=== PATIENT | female | born 1985 | race Caucasian/White ===

== ENCOUNTER → 2016-11-18 | Outpatient (CLI) | payer BC ==
[~2016-11-18] MED LIST: BIOT300T2 PO; CETI10TA10 PO; ESCI10TA17 PO; OMEGCAP2 PO; PRENTAB26 PO
[2016-11-18 12:00] LABS: URINE APPEARANCE CLEAR (CLEAR); URINE BILIRUBIN NEG (NEG); URINE COLOR YELLOW; URINE NITRITE NEG (NEG); URINE SPECIFIC GRAVITY 1.019 (1.000-1.030); UROBILINOGEN NEG (NEG)
[2016-11-18 12:08] LABS: MANUAL MICROSCOPIC REQUIRED? NO; REVIEW REQ? NO
[2016-11-18 12:19] LABS: BASO % 0.3 %; BASO ABS # 0.02 K/uL (0-0.2); COMPLETE YES; HEMATOCRIT 36.9 % (37-47); IG% 0.2 %; LYMPH % 20.1 %; MEAN CELL VOLUME 84.6 fL (80-100); MEAN CORPUSCULAR HEMOGLOBIN 29.8 pg (25-34); MEAN CORPUSCULAR HGB CONC 35.2 g/dl (32-36); MEAN PLATELET VOLUME 11.9 fL (7.4-10.4); MONO % 9.2 %; NEUT % 65.2 %; PLATELET COUNT 174 K/uL (130-400); RED BLOOD COUNT 4.36 M/uL (4.2-5.4); WHITE BLOOD COUNT 5.97 K/uL (4.8-10.8)
[2016-11-20 00:34] LABS: CHLAMYDIA TRACH RNA*** NOT DETECTED (NOT DETECTED); GC (NEIS GONORRHOEAE)RNA** NOT DETECTED (NOT DETECTED)
== END | disposition home or self-care (01) ==
LOC: C.LAB1850 09:52
PROVIDERS: ATTEND Obstetrics & Gynecology
DX: Z34.91 Encounter for supervision of normal pregnancy, unspecified, first trimester (principal)

== ENCOUNTER → 2017-01-16 | Outpatient (CLI) | payer BC ==
[2017-01-16 10:05] LABS: GTGD 50 Grams
== END | disposition home or self-care (01) ==
LOC: C.LAB1850 09:03
PROVIDERS: ATTEND Obstetrics & Gynecology
DX: Z34.92 Encounter for supervision of normal pregnancy, unspecified, second trimester (principal); Z3A.00 Weeks of gestation of pregnancy not specified

== ENCOUNTER → 2017-04-03 | Outpatient (CLI) | payer OTHER ==
[2017-04-03 12:16] LABS: HEMOGLOBIN 10.4 g/dL (12.0-16.0)
== END | disposition home or self-care (01) ==
LOC: C.LAB1850 09:36
PROVIDERS: ATTEND Obstetrics & Gynecology
DX: Z34.93 Encounter for supervision of normal pregnancy, unspecified, third trimester (principal); Z3A.00 Weeks of gestation of pregnancy not specified

== ENCOUNTER 2017-06-21 03:57 | Inpatient (IN) | payer OTHER ==
[~2017-06-21] VITALS: Ht 160 cm; Wt 94.1 kg
[2017-06-21] MEDS ORDERED: METHYLERGONOVINE MALEATE 0.2 MG/ML AMP ONE (04:16)
[2017-06-21] MEDS ORDERED: HYDROCORTISONE ACETATE 25 MG SUPP PR PRN (04:30)
[2017-06-21] MEDS ORDERED: LANOLIN OINT EXT PRN (04:30)
[2017-06-21] MEDS ORDERED: DIPHTHERIA/TETANUS/PERTUSSIS 0.5 ML SYR/VIAL IM. ONE (04:30)
[2017-06-21] MEDS ORDERED: METHYLERGONOVINE MALEATE 0.2 MG/ML AMP IM ONE (04:30)
[2017-06-21] MEDS ORDERED: SUPERCREAM 0.870 % 15GM JAR EXT PRN (04:30)
[2017-06-21] MEDS ORDERED: OXYTOCIN INJ 10 UNITS/ML VIAL IM ONE (04:30)
[2017-06-21] MEDS ORDERED: BENZOCAINE 20% AER SPR 82.5 GM CAN EXT PRN (04:30)
[2017-06-21] MEDS: IBUPROFEN 600 MG TAB PO PRN ×4 (04:44→23:36)
--- NOTE | 2017-06-21 04:57 | DELIVERY SUMMARY ---
DATE OF OPERATION: 06/21/2017 DATE OF DELIVERY: 06/21/2017. FINDINGS: Viable female with Apgars of 7 and 9. Nuchal cord x1. Delivered over midline second-degree laceration. Placenta delivered spontaneously. Laceration repaired with 4-0 Vicryl in routine fashion. Estimated blood loss 300 mL. LABOR NOTE: Patient is a 32-year-old 2, para 1 with an EDC of 06/26/2017 at 39+ weeks gestational age. She presented to labor and delivery in active labor. Patient states her contractions began at approximately 2200 hours on 06/20/2017. She denied rupture of membranes or vaginal bleeding. Patient has had a benign course. Her blood type is A positive, antibody negative, Rubella immune, hepatitis B negative. She declined a quad screen. She had normal 1-hour Glucola x2 and a negative third trimester beta strep culture. Upon admission, the patient was found to be fully dilated with bulging membranes at +2 station. Patient had an uncontrollable urge to push. Artificial rupture of membranes of light meconium fluid. Baby delivered over 2 contractions. Nuchal cord x1 reduced on the perineum. Cord was clamped and cut and the baby was taken over to the resuscitation stand for evaluation. Cord gases and cord blood samples obtained. Placenta delivered spontaneously. Patient received Pitocin 10 units IM and Methergine 0.2 mg IM. Inspection of the perineum showed a midline second-degree laceration. Infiltrated with 1% lidocaine and closed with 4-0 Vicryl suture. Estimated blood loss 300 mL. Sponge and needle count was correct. I attest to the content of the Intraoperative Record and any orders documented therein. Any exception s are noted below.
[2017-06-21] MEDS ORDERED: PRENTAB26 PO (05:15)
[2017-06-21] MEDS ORDERED: ESCI1TAB10 PO (05:15)
[2017-06-21 05:17] VITALS: Ht 160 cm; Wt 94.1 kg
[2017-06-21] MEDS ORDERED: ESCITALOPRAM OXALATE 10 MG TAB PO SCH (08:00)
[2017-06-21] MEDS: DOCUSATE SODIUM 100 MG CAP PO SCH ×2 (08:45→19:43)
[2017-06-21] MEDS: PRENATAL VITAMIN TAB PO SCH (08:45)
[2017-06-21] MEDS: FERROUS SULFATE 325 MG TAB PO SCH (08:45)
[2017-06-21 14:05] VITALS: BP 105/82; PULSE 92; TEMP 36.9; O2SAT 98
[2017-06-21 15:30] VITALS: BP 117/74; PULSE 73; TEMP 36.8
[2017-06-21 20:00] VITALS: BP 96/62; PULSE 81; TEMP 37
[2017-06-21] MEDS ORDERED: ESCITALOPRAM OXALATE 20 MG TAB PO SCH (20:00)
[2017-06-21 23:25] VITALS: BP 105/66; PULSE 73; TEMP 36.9; O2SAT 99
[2017-06-22 03:30] VITALS: BP 109/57; PULSE 76; TEMP 36.8; O2SAT 98
--- NOTE | 2017-06-22 06:35 | Progress Note ---
Subjective June 22, 2017. Subjective conversation w/ patient Ambulation: ambulating normally Voiding: no voiding problems Diet Tolerance: Regular Diet Lochia: Moderate Feeding Type: Bottle Feeding Pain: Mild perineal pain reported, improved with analgesia Review of Systems Constitutional: No fever, No chills Respiratory: No shortness of breath Cardiac: No chest pain Abdomen: No nausea, No vomiting Objective Vital Signs Date Time Temp Pulse Resp B/P (MAP) Pulse Ox O2 Delivery O2 Flow Rate FiO2 06/22/17 03:30 36.8 76 18 109/57 (74) 98 Room Air 06/21/17 23:25 36.9 73 18 105/66 (79) 99 Room Air 06/21/17 23:25 99 Room Air 06/21/17 20:00 37.0 81 18 96/62 (73) Room Air 06/21/17 15:30 36.8 73 18 117/74 (88) Room Air 06/21/17 15:30 Room Air 06/21/17 14:05 Room Air 06/21/17 14:05 36.9 92 16 105/82 (90) 98 Room Air Physical Exam General Appearance: WELL-APPEARING, WD/WN, NO APPARENT DISTRESS Respiratory/Chest: lungs clear, normal breath sounds Cardiovascular: regular rate, rhythm Abdomen: soft Fundus: Firm, Non-Tender, Relation to Umbilicus (at u) Extremities: no pedal edema, no calf tenderness Laboratory Results Last 24 Hours Test 06/22/17 06:21 Medications Current Inpatient Medications Medications (Trade) Dose Ordered Sig/Emily Route Start Time Stop Time Status Last Admin Dose Admin Benzocaine (Dermoplast Aero Spr) 1 appln PRN PRN EXT 06/21/17 04:30 07/21/17 04:29 Cocaine HCl (Supercream 0.870% Cr) BID PRN EXT 06/21/17 04:30 07/05/17 04:29 Hydrocortisone Acetate (Anusol Hc Supp) 25 mg BID PRN WA 06/21/17 04:30 07/21/17 04:29 Lanolin (Lanolin Oint) PRN PRN EXT 06/21/17 04:30 07/21/17 04:29 Prenat Multivit/ Data Compiler/Iron/Folic Ac ( Vitamin Tab) 1 tab DAILY PO 06/21/17 08:00 07/21/17 07:59 06/21/17 08:45 1 TAB Ibuprofen (Motrin Tab) 600 mg Q4H PRN PO 06/21/17 04:30 07/21/17 04:29 06/21/17 23:36 600 MG Bisacodyl (Dulcolax Tab) 5 mg 20 PO 06/22/17 20:00 06/22/17 20:01 Docusate Sodium (coLACE CAP) 100 mg BID PO 06/21/17 08:00 07/21/17 07:59 06/21/17 19:43 100 MG Ferrous Sulfate (Feosol Tab) 325 mg DAILY PO 06/21/17 08:00 07/21/17 07:59 06/21/17 08:45 325 MG Escitalopram Oxalate (Lexapro Tab) 20 mg DAILY@1999 PO 06/21/17 20:00 07/21/17 19:59 06/21/17 19:43 20 MG Assessment and Plan Post- Day#: 1 Continue Routine Care: 32F s/p NVD with second degree laceration day 1 - A+, Rubella Immune, GBS -ve - pt doing very well clinically - Vital signs reviewed and WNL - Continue to encourage ambulation and control pain with Motrin PRN - Pt ready for d/c later today and will be counselled on discharge instructions Resident Physician Supervision Note: I interviewed and examined the patient. Discussed with Dr. Abraham and agree with findings and plan as documented in the note. Any exceptions or clarifications are listed here: Patient ready for d/c. Instructions given, f/u in 6 weeks Documented By: Pop Núñez Resident Tracking Resident Involvement: Resident Care Provided Care Provided: OB Delivery
[2017-06-22 06:37] LABS: HEMOGLOBIN 10.9 g/dL (12.0-16.0)
--- NOTE | 2017-06-22 06:55 | Discharge Instructions ---
Discharge Instructions Date of Service June 22, 2017. Admission Reason for Admission: LABOR Discharge Discharge Diagnosis / Problem: Vaginal Delivery Discharge Goals Goal(s): Routine recovery after delivery Medications Continue Dispensed Medications: supercream, dermaplast, tucks, lansinoh Activity Recommendations Activity Limitations: per Instructions/Follow-up section . Instructions / Follow-Up Instructions / Follow-Up ACTIVITY RECOMMENDATIONS: * Gradual return to full activity over the next 2-3 weeks. * No lifting - nothing heavier than baby over the next 2-3 weeks. * Do not engage in vigorous exercise, sexual activity or sports until cleared by your physician. * Do not drive or operate any motorized equipment until cleared by your physician. * You may shower/bathe daily. MEDICATIONS: For discomfort or pain, you may use Acetaminophen (Tylenol), Ibuprofen (Advil), or Naproxen (Aleve) following the package directions. For constipation you may use Colace following the package directions. BREAST CARE: If you are not breast feeding: * Wear a supportive bra 24 hours a day for one to two weeks. * Avoid stimulating your breasts and nipples as much as possible during the first few weeks after delivery. * When taking a shower, have the warm water hit your back, not breasts. * When your breasts feel full, apply ice packs. Usually three to four times a day helps ease the discomfort. * Take a mild pain medication (Tylenol / Motrin) when you are uncomfortable. If breast feeding: * Use breast milk to lubricate nipples. Lansinoh cream may be used for sore nipples. You do not need to remove cream prior to breast feeding. If using a different brand of cream, check the label for directions regarding removal of cream prior to nursing. * Wear a supportive bra. * If having problems with breasts or breast feeding, call a reservoir engineering consultant or your health care provider. EPISIOTOMY CARE: After delivery, if you have an episiotomy (stitches), the following steps will ease discomfort and aid healing. * For the first 24 hours after delivery, place ice packs next to your episiotomy to help reduce swelling. * After the first 24 hour-period, sitz baths, either portable or in the tub, are suggested. A shower with a shower arm sprayed over the episiotomy may be comforting. * Gisel care should be done after each voiding and bowel movement. Squirt warm water from a plastic bottle over the perineum (region of the body between the anus and urinary opening) and pat dry. * Use Dermoplast to ease discomfort. Shake container. Hurst directly over the episiotomy. Place a Tucks on a clean sanitary pad next to your episiotomy. SPECIAL CARE INSTRUCTIONS: When you are discharged from the hospital, it is important for you to follow the instructions listed below: * During the first week at home, you should be able to care for yourself and your baby. In addition, the usual light household activities are encouraged. * Limit your activities to the way you feel. Do not try to clean the house or move furniture. Be sensible. * If you actively engage in sports and have done so up until the time of your delivery, you may resume these activities as soon as you feel able. This may take up to one month or even longer. Use good judgment. * Continue to take your vitamins for at least six weeks after the of your baby. * Your diet need not be limited unless you were on a special diet before your delivery. Breast-feeding mothers need around 2500 calories per day and at least 64-80 ounces of fluid per day (8 to 10 glasses). * You should eat foods from the four major food groups. Crash diets or fad diets are to be avoided. Eating lean meats, fresh fruits and vegetables, low-fat dairy products, high fiber foods and a regular exercise program, will help you get back to your pre- weight without putting your health at risk. * Constipation is sometimes a problem after delivery. Take a mild laxative as needed. If breast feeding, Milk of Magnesia is acceptable to use. You may use a suppository or Fleets enema if no episiotomy. * A daily shower or tub bath is suggested. Be sure to thoroughly and gently dry the perineum. * A bloody vaginal discharge will usually continue until around four weeks post . A small amount of bleeding may continue for as long as six weeks. Vaginal discharge changes from the bright red bleeding after delivery to pink then brownish and finally yellowish-pink before becoming white and disappearing. * Bleeding may increase with activity. Your first period may come in 4-8 weeks. If you are breast feeding, your period may be delayed even longer. * [place] (sex) can begin whenever both you and your partner feel comfortable and do not have any form of genital infection. It is recommended that you wait at least six weeks for internal and external healing to occur. If you have questions, please talk to your health care practitioner. A condom should be used to prevent infection and . * Foreplay, gentle intercourse and lubrication is very important the first several times to prevent pain. A water-based lubricant such as K-Y jelly or Astroglide may be used. * If you have RH negative blood and your baby is RH positive, you will receive RHOGAM by injection prior to discharge. The nurse will give you a card to keep with you that has the date and place that you received RHOGAM after delivery. * During your care, you had a Rubella screen done to check for the presence of rubella antibodies in your blood. If your test was negative, you will receive a Rubella vaccine prior to discharge. This vaccine may cause a fever, soreness at the injection site and flu-like symptoms. If these symptoms persist, notify your health care practitioner. is not advised for one month after a Rubella vaccine. * Verbalizes understanding of car seat law as reviewed with patient nursing. * Car Seat hand-out given and reviewed with patient by nursing. * Shaken baby information reviewed with patient by nursing. Call you doctor if: * Heavy bleeding (saturating several pads an hour) or passing clots the size of your fist. * A fever >101 degrees F (38.3 degrees C) on two occasions four hours apart and /or chills. * Unusual pain in the pelvic or vaginal areas. * "Baby Blues" lasting longer than two weeks. If you have any questions or concerns, call your health care practitioner at . FOLLOW UP VISIT: * Please call the office at to schedule a 6 week examination. It is important you keep this appointment. It is important for you to make arrangements for either yearly or twice yearly check-ups thereafter. Current Hospital Diet Patient's current hospital diet: Regular OB Diet Discharge Diet Recommended Diet: Regular Diet Pending Studies Studies pending at discharge: no Medical Emergencies . Who to Call and When: Medical Emergencies: If at any time you feel your situation is an emergency, please call [phone] immediately. . Non-Emergent Contact Non-Emergency issues call your: Primary Care Provider . . "Provider Documentation" section prepared by Loco Abraham. .
[2017-06-22] MEDS: DOCUSATE SODIUM 100 MG CAP PO SCH (07:21)
[2017-06-22] MEDS: PRENATAL VITAMIN TAB PO SCH (07:21)
[2017-06-22] MEDS: FERROUS SULFATE 325 MG TAB PO SCH (07:21)
[2017-06-22] MEDS: IBUPROFEN 600 MG TAB PO PRN ×3 (07:22→16:44)
[2017-06-22 07:30] VITALS: BP 132/77; PULSE 76; TEMP 36.4; O2SAT 99
[2017-06-22 15:40] VITALS: BP 110/67; PULSE 89; TEMP 36.8
[2017-06-22 17:00] VITALS: BP_DIAS 67; PULSE 89; TEMP 36.8
[2017-06-22] MEDS ORDERED: BISACODYL 5 MG TABEC PO SCH (20:00)
== END 2017-06-22 17:15 | disposition home or self-care (01) | DRG 775 ==
LOC: C.LD 03:57 → C.OPB 03:57 → C.LD 04:16 → C.OBG 14:24 → EDSTATUS 06-26 03:55
PROVIDERS: ADMIT Obstetrics & Gynecology; ATTEND Obstetrics & Gynecology
PROC: 0KQM0ZZ Repair Perineum Muscle, Open Approach (ICD-10-PCS; principal; 2017-06-21)
PROC: 10E0XZZ Delivery of Products of Conception, External Approach (ICD-10-PCS; principal; 2017-06-21)
DX: O70.1 Second degree perineal laceration during delivery (principal); O69.81X1 Labor and delivery complicated by cord around neck, without compression, fetus 1; Z37.0 Single live birth

== ENCOUNTER 2022-01-23 00:39 | Inpatient (IN) ==
[2022-01-23] MEDS ORDERED: OXYTOCIN 30 UNITS/500 ML BAG IV PRN ×3 (02:23→07:13)
[2022-01-23] MEDS ORDERED: LIDOCAINE 1% LOCAL 20 ML VIAL INFIL PRN (02:23)
--- NOTE | 2022-01-23 02:29 | History & Physical Report ---
Date of Service January 23, 2022 Assessment & Plan (1) Elderly multigravida: Plan: Admit to L&D. EFM/toco, labs. OK to ambulate. OK for epidural when she desires. Admission and Anticipated Discharge Date Admission Date: January 23, 2022 History of Present Illness Chief Complaint: contractions Primary Care Provider: NO PCP 36yo @ 40 3/7, presented to L&D with ctx. + movement, no vaginal bleeding or leaking of fluid. Has had increasing ctx overnight tonight, started after membrane stripping in office yesterday in preparation of IOL. Allergies Allergy/AdvReac Type Severity Reaction Status Date / Time acetaminophen Allergy Unknown Cough, Verified 01/22/22 14:35 difficulty breathing and throat irritation. animal dander Allergy Unknown Verified 01/22/22 14:35 pollen extracts Allergy Verified 01/22/22 14:35 dust Allergy Unknown Uncoded 01/20/22 13:11 Home Medications Medication Instructions Recorded Confirmed Type escitalopram oxalate 20 mg tablet 20 mg PO DAILY #0 tabs 06/21/17 01/23/22 History (Lexapro) cetirizine 10 mg tablet 10 mg PO DAILY allergy symptoms 07/08/19 01/23/22 History bupropion HCl [Wellbutrin] 150 mg PO DAILY 12/25/20 01/23/22 History prenat.vits,griffin,lme-pvxh-fwadv 1 tab PO DAILY 06/03/21 01/23/22 History albuterol sulfate 90 mcg/actuation 2 inh inhalation Q6H PRN shortness 07/12/21 01/23/22 Rx breath activated powder inhaler of breath or wheezing #1 ea Patient History Medical History (Updated 06/03/21 @ 10:05 by Elayne Naidu) History of chicken pox SERJIO (iron deficiency anemia) IUD (intrauterine device) in place Shanon 2017 Right radial head fracture Tinea corporis Surgical History H/O wisdom tooth extraction Family History Grandmother FHx: diabetes mellitus Breast cancer Mother Hypertension Hypercholesterolemia Osteoporosis Kidney disease Allergic rhinitis Father Allergic rhinitis Lung cancer Brother Allergic rhinitis Denies family history of Ovarian cancer Colorectal cancer Social History (Updated 06/03/21 @ 09:55 by Elayne Rushing Smoking Status: Never smoker Hx Alcohol Use: Yes (social) Hx Substance Use: No Preferred Language: Arabic Communication Ability: Effective [employer] Required: No Beliefs That Will Affect Care: Yarsani Yarsani Beliefs: Jehovah'S Witness marital status: marital status details: Thee Sandy (39) [phone] Current Living Situation: Spouse and Family Current Living Situation Comment: Spouse and 2 children. current occupational status: unemployed current occupation: homemaker Feels Safe at Home: Yes Safety Concerns: Feels Safe At This Time Assistive Devices: Glasses Review of Systems All systems reviewed & are unremarkable except as noted in HPI & below Physical Exam Physical Exam: FHT Cat 1 [place] Q 4-6 min SVE 3-4/80/-1 per RN Constitutional: WD/WN, vitals as above Respiratory: normal respiratory effort, lungs clear to auscultation no respiratory distress Cardiovascular: Rate/Rhythm: regular rate and regular rhythm Gastrointestinal (Abdomen): Inspection/Auscultation: abdomen normal to inspection Percussion/Palpation: abdomen soft; abdomen nontender Gravid. No s/s chorio or abruption. Skin: no rashes, warm and dry Psychiatric: A+Ox3, euthymic affect Results & Data ([facility]) Vital Signs (Past 12 Hours) Vital Signs Temp Pulse Resp BP 01/23/22 00:58 81 123/66 01/23/22 01:03 37.1 C 20 Coding Level of Care Code None Diagnoses Elderly multigravida O09.529
[2022-01-23] MEDS: LACTATED RINGER'S 1,000 ML IV PRN ×2 (02:53→03:51)
[2022-01-23 02:55] LABS: Hematocrit (blood only) 31.7 % (34.1-44.9); Hemoglobin 10.3 g/dl (12.0-16.0); Mean Corpuscular Hemoglobin 26.3 pg (25.0-34.0); Mean Corpuscular Hgb Conc 32.5 g/dL (32.0-36.0); Mean Corpuscular Volume 80.9 fL (80.0-100.0); Mean Platelet Volume 10.7 fL (9.4-12.3); Platelet Count 154 K/uL (130-400); RDW Coefficient of Variation 14.6 % (11.5-14.5); RDW Standard Deviation 42.7 fL (36.4-46.3); Red Blood Count 3.92 M/uL (3.93-5.22); White Blood Count 9.22 K/ul (4.8-10.8)
[2022-01-23] MEDS ORDERED: ePHEDrine sulfate 50 MG/ML AMP ONE (03:07)
[2022-01-23] MEDS ORDERED: fentaNYL citrate 100 MCG/2 ML VIAL ONE (03:07)
[2022-01-23] MEDS ORDERED: SODIUM CHLORIDE 0.9% INJ 10 ML VIAL ONE (03:07)
[2022-01-23] MEDS ORDERED: fentaNYL 2MCG/ML ROPIVACAINE 1.25MG/ML 100 ML BAG EPI ONE (03:08)
[2022-01-23] MEDS ORDERED: LIDOCAINE 2%/EPINEPHRINE 1:200,000 20 ML SDV ONE (03:08)
[2022-01-23] MEDS ORDERED: BUPIVACAINE 0.25% 30 ML VIAL ONE (03:08)
[2022-01-23] MEDS ORDERED: NALOXONE HCL 0.4 MG/1 ML VIAL/CARP IV PRN (03:30)
[2022-01-23] MEDS ORDERED: NALBUPHINE HCL INJ 10 MG/ML AMP IV PRN (03:30)
[2022-01-23] MEDS ORDERED: ePHEDrine sulfate 50 MG/ML AMP IV PRN (03:30)
[2022-01-23] MEDS ORDERED: fentaNYL 2MCG/ML ROPIVACAINE 1.25MG/ML 100 ML BAG EPI PRN (03:30)
[2022-01-23] MEDS ORDERED: diphenhydrAMINE 50 MG/ML VIAL IV PRN (03:30)
[2022-01-23] MEDS ORDERED: ONDANSETRON INJ 2 MG/ML 2 ML VIAL IV PRN (03:30)
[2022-01-23] MEDS ORDERED: NALOXONE HCL 1 MG in SODIUM CHLORIDE 0.9% 1000ML 1,000 ML IV PRN (03:30)
--- NOTE | 2022-01-23 03:33 | Anesthesiology Consultation ---
Date of Service January 23, 2022 Assessment & Plan Chart Review Chart Review: Patient NOT seen in Pre Admission Testing and Acceptable Risk for Labor Epidural Consults Requested none ASA ASA2 Proposed Anesthesia Anesthesia Type: Labor Epidural and CSE Risk / Benefits Reviewed With: PT / POA / Parent / Guardian, Accepts Plan and Informed Consent Obtained History Height/Weight Height: 5 ft 3 in Weight: 96.162 kg Allergies Allergy/AdvReac Type Severity Reaction Status Date / Time acetaminophen Allergy Unknown Cough, Verified 01/22/22 14:35 difficulty breathing and throat irritation. animal dander Allergy Unknown Verified 01/22/22 14:35 pollen extracts Allergy Verified 01/22/22 14:35 dust Allergy Unknown Uncoded 01/20/22 13:11 Medications Home Medications Medication Instructions Recorded Confirmed Last Taken escitalopram oxalate 20 mg tablet 20 mg PO DAILY #0 tabs 06/21/17 01/23/22 01/22/22 20:00 (Lexapro) cetirizine 10 mg tablet 10 mg PO DAILY allergy symptoms 07/08/19 01/23/22 20:00 bupropion HCl [Wellbutrin] 150 mg PO DAILY 12/25/20 01/23/22 01/22/22 20:00 prenat.vits,griffin,aam-mfdd-eccoy 1 tab PO DAILY 06/03/21 01/23/22 01/22/22 20:00 albuterol sulfate 90 mcg/actuation 2 inh inhalation Q6H PRN shortness 07/12/21 01/23/22 Unknown breath activated powder inhaler of breath or wheezing #1 ea Active Medications Generic Name Dose Route Start Last Admin Trade Name Freq PRN Reason Stop Dose Admin Lactated Ringer's 1,000 mls @ 125 mls/hr 01/23/22 02:23 01/23/22 02:53 Lr IV 01/25/22 02:22 999 mls/hr .Q8H PRN Administration L&D Protocol Protocol NPO Date Last Intake of Fluids: 01/23/22 Time Last Intake of Fluids: 01:00 Date Last Intake of Solids: 01/22/22 Time Last Intake of Solids: 19:00 Past Medical History Medical History History of chicken pox SERJIO (iron deficiency anemia) IUD (intrauterine device) in place Shanon 2018 Right radial head fracture Tinea corporis Exercise / Class Metabolic Activity II 4-5 Yardwork/Stairs/Walk up hill Past Family History Family History Grandmother FHx: diabetes mellitus Breast cancer Mother Hypertension Hypercholesterolemia Osteoporosis Kidney disease Allergic rhinitis Father Allergic rhinitis Lung cancer Brother Allergic rhinitis Denies family history of Ovarian cancer Colorectal cancer Past Surgical History Surgical History H/O wisdom tooth extraction Past Anesthesia History No Hx of Anesthesia Complications and No Family Hx of Anesthesia Complications History of PONV No Hx of PONV and No Hx of Motion Sickness Social History Smoking Status: Never smoker Hx Alcohol Use: Yes (social) Hx Substance Use: No Review of Systems no chest pain or sob Physical Exam Vital Signs Last Vital Signs Temp 37.1 C 01/23/22 01:03 Pulse 76 01/23/22 03:30 Resp 20 01/23/22 01:03 BP 123/66 01/23/22 00:58 Pulse Ox 97 01/23/22 03:30 ENMT Mouth: no TMJ abnormality Thyromental Distance: > or= 3.5 Finger Breadths Mallampati Class: II Neck normal visual inspection Respiratory normal respiratory effort Auscultation: lungs clear to auscultation bilaterally Cardiovascular Rate/Rhythm: regular rate and regular rhythm Musculoskeletal Spine: normal cervical ROM Neurologic moves all extremities Psychiatric Orientation: alert and oriented x 3 Testing Laboratory Results 01/23/22 02:32
--- NOTE | 2022-01-23 07:03 | Delivery Summary ---
Vaginal Delivery Summary Date of Service January 23, 2022 Vaginal Delivery Summary Vaginal Delivery Summary: Pre-delivery diagnoses: 36yo @ 40 3/7, spontaneous labor, AMA Post-delivery diagnoses: same Procedure: spontaneous vaginal delivery, repair of 1st degree tear Surgeon: Taylor Bhatia DO Complications: none Findings: Viable female . Apgars: 7/8. Weight pending, please see nursery records. Estimated blood loss:300ml Description of delivery: The patient progressed to complete with epidural anesthesia. She then began to push. She spontaneously vaginally delivered a viable from the cephalic presentation. The head delivered in GREGORIO position. The anterior shoulder delivered, followed by the posterior shoulder, followed by the body. The baby was placed on mother's abdomen and a spontaneous cry was heard. Delayed cord clamping was employed, and the cord was doubly clamped and cut. A segment was retained for cord gases. Cord blood was obtained. The placenta was delivered spontaneously intact with a 3-vessel cord. The uterus and vagina were swept of clots and debris. IV pitocin was given. The uterus became firm. The cervix, vagina, and perineum were inspected and a 1st degree perineal laceration was noted, repaired with 3-0 vicryl in standard fashion. Excellent hemostasis was observed. The mother and baby are recovering in stable and good condition in the room. Sponge, needle and instrument counts were correct x 2. Taylor Bhatia DO [facility]
[2022-01-23] MEDS ORDERED: ACETAMINOPHEN 325 MG TAB PO PRN (07:13)
[2022-01-23] MEDS ORDERED: DIPHTHERIA/TETANUS/PERTUSSIS 0.5 ML SYR/VIAL IM ONE (07:13)
[2022-01-23] MEDS ORDERED: BENZOCAINE 20% AER SPR 82.5 GM CAN EXT PRN (07:13)
[2022-01-23] MEDS ORDERED: oxyCODONE/ACETAMINOPHEN 5mg/325mg TAB PO PRN (07:13)
[2022-01-23] MEDS ORDERED: HYDROCORTISONE ACETATE 25 MG SUPP PR PRN (07:13)
[2022-01-23] MEDS ORDERED: bisacodyL 10 MG SUPP PR PRN (07:13)
[2022-01-23] MEDS ORDERED: ALBUTEROL HFA 8 GM INHALER INH PRN (07:17)
[2022-01-23 07:41] LABS: Base Excess Cord Arterial Bld -3.1 mEq/L (-9-1.8); CO2 Cord Arterial Blood 63 mmHg (39.1-73.5); HCO3 Cord Arterial Blood 26 mmol/L (19.7-28.5); Oxygen Sat Cord Arterial Blood < 60.0 % (<60); PO2 Cord Arterial Blood 20 mmHg (4.1-31.7); pH Cord Arterial Blood 7.22 (7.1-7.38)
[2022-01-23 07:44] LABS: Base Excess Cord Venous Blood -3.1 mEq/L (-7.7-1.9); Cord Venous Blood HCO3 23 mmol/L (18.4-26.8); Cord Venous Blood PCO2 45 mmHg (30.4-57.2); Cord Venous Blood PO2 27 mmHg (14.1-43.3); Cord Venous Blood pH 7.32 (7.20-7.44); O2 Saturation Cord Venous Bld < 60.0 % (<68)
[2022-01-23] MEDS ORDERED: Nursing to Pharmacy Communication SCH (08:00)
--- NOTE | 2022-01-23 08:42 | Anesthesia Procedure Note ---
Date of Service January 23, 2022 Anesthesia Post Epidural Note Vital Signs Vital Signs: Temp Pulse Resp BP Pulse Ox O2 Del Method 36.6 C 67 20 123/71 97 01/23/22 07:15 01/23/22 08:23 01/23/22 08:00 01/23/22 08:23 01/23/22 07:15 01/23/22 04:11 Notes Mental Status: alert / awake / arousable and participated in evaluation Nausea / Vomiting: adequately controlled Pain: adequately controlled Airway Patency, RR, SpO2: stable & adequate BP & HR: stable & adequate Hydration State: stable & adequate Neuraxial Anesthesia: was administered and sensory block is resolving Anesthetic Complications: no major complications apparent and Pt Satisfied with anesthetic care Epidural: Removed without complications and With tip intact
[2022-01-23] MEDS: PRENATAL VITAMIN 1 TAB PO SCH (08:59)
[2022-01-23] MEDS: DOCUSATE SODIUM 100 MG CAP PO SCH ×2 (08:59→20:19)
[2022-01-23] MEDS ORDERED: ESCITALOPRAM OXALATE 20 MG TAB PO SCH ×2 (09:00→20:00)
[2022-01-23] MEDS ORDERED: buPROPion SR 150 MG TABCR PO SCH ×2 (09:00→20:00)
[2022-01-23] MEDS: IBUPROFEN 600 MG TAB PO PRN ×3 (09:53→18:57)
[2022-01-23] MEDS: CETIRIZINE HCL 10 MG TABLET PO SCH (20:46)
[2022-01-24] MEDS: IBUPROFEN 600 MG TAB PO PRN ×3 (00:49→13:16)
--- NOTE | 2022-01-24 06:38 | Obstetrical Progress Note ---
Date of Service <Emerson Muniz DO - Last Filed: 01/24/22 07:29> January 24, 2022 Assessment & Plan <Emerson Muniz DO - Last Filed: 01/24/22 07:29> (1) Vaginal delivery: - Feels well today. Eating well, voiding well, ambulating well. - Pain well controlled with ibuprofen 600mg Q4H PRN - Routine care -- OOB, ambulation, diet progression as tolerated - After discharge will have 6 week follow-up with Dr. Bhatia. - Will D/C today. Day #:: 1 <Courtney Tucker MD, FACOG - Last Filed: 01/24/22 07:55> (1) Vaginal delivery: Subjective <Emerson Muniz DO - Last Filed: 01/24/22 07:29> Ambulation: ambulating normally Voiding: no voiding problems Passing Gas:: Yes Diet Tolerance:: regular diet Lochia:: Small Feeding Type:: breast feeding Current Pain Level(1-10): 2 Review of Systems Denies fever, chills, sweats Denies shortness of breath, difficulty breathing, chest pain, palpitations, chest pressure. Denies breast pain. Denies dysuria. Denies headache or changes in vision. Physical Exam <Emerson Muniz DO - Last Filed: 01/24/22 07:29> General: Alert, oriented. No acute distress. Cardiac: Regular rate and rhythm, no murmurs/rubs/gallops. Respiratory: Clear to auscultation bilaterally a/p, no wheezes/rales/rhonchi. No increased work of breathing. Symmetrical chest rise. No respiratory distress. Abdomen: Soft, nontender, nondistended. Bowel sounds present. Uterus: Uterine fundus firm, palpable 2 cm below umbilicus. Lower Extremities: No lower extremity edema or swelling. No deep calf pain. Kati's negative bilaterally. Results & Data ([facility]) <Emerson Muniz DO - Last Filed: 01/24/22 07:29> Vital Signs (Past 12 Hours) Vital Signs Temp Pulse Resp BP Pulse Ox O2 Del Method 01/24/22 03:26 36.8 C 74 18 122/83 95 Room Air 01/23/22 22:58 37 C 82 18 116/68 98 Room Air 01/23/22 19:14 36.8 C 62 16 124/64 Room Air <Courtney Tucker MD, FACOG - Last Filed: 01/24/22 07:55> Co-Signing Physician Notes Resident Physician Supervision Note: I interviewed and examined the patient. Discussed with Dr. Muniz and agree with findings and plan as documented in the note. Any exceptions or clarifications are listed here: Doing well. Plan d/c. Instructions given. Documented By: Courtney Tucker MD, FACOG Resident Activity Tracking <Emerson Muniz DO - Last Filed: 01/24/22 07:29> Resident Involvement: Resident Care Provided Care Provided: OB Delivery
[2022-01-24 08:02] LABS: Hemoglobin 8.9 g/dl (12.0-16.0)
[2022-01-24] MEDS: PRENATAL VITAMIN 1 TAB PO SCH (08:13)
[2022-01-24] MEDS: CETIRIZINE HCL 10 MG TABLET PO SCH (08:13)
[2022-01-24] MEDS: DOCUSATE SODIUM 100 MG CAP PO SCH (08:13)
[2022-01-24] MEDS ORDERED: bisacodyL 5 MG TABEC PO SCH (20:00)
== END 2022-01-24 13:45 | disposition home or self-care (01) | DRG 807 ==
LOC: 4S1 00:39 → 4E1 09:56